=== PATIENT | female | born 1960 | race Caucasian/White ===

== ENCOUNTER 2017-11-19 18:56 | Emergency (ER) | payer OTHER ==
[~2017-11-19] VITALS: Wt 63.0 kg
== END 2017-11-19 20:25 | disposition home or self-care (01) ==
LOC: ED 18:56
DX: I73.00 Raynaud's syndrome without gangrene (principal); Z88.0 Allergy status to penicillin

== ENCOUNTER → 2017-11-28 | Outpatient (CLI) | payer OTHER ==
[2017-11-28 09:16] LABS: BASO % 0.3 % (0.0-1.0); EOS % 0.7 % (1.0-4.0); HEMATOCRIT 40.8 % (37.0-47.0); HEMOGLOBIN 13.1 g/dl (12.0-16.0); LYMPH # 2.1 10*3/uL (1.3-4.4); LYMPH % 34.7 % (27.0-41.0); MEAN CELL VOLUME 92.1 fl (81.0-99.0); MEAN CORPUSCULAR HGB 29.6 pg (27.0-31.0); MEAN CORPUSCULAR HGB CONC 32.1 g/dl (33.0-37.0); MEAN PLATELET VOLUME 10.2 fl (9.6-12.3); MONO # 0.6 10*3/uL (0.1-1.0); MONO % 9.5 % (3.0-9.0); NEUT # 3.3 10*3/uL (2.3-7.9); NEUT % 54.6 % (47.0-73.0); PLATELET COUNT AUTOMATED 289 10*3/uL (130-400); RED BLOOD COUNT 4.43 10*6/uL (4.10-5.10); RED CELL DISTRI WIDTH 12.6 % (0-14.5)
[2017-11-28 09:24] LABS: ALBUMIN 4.1 gm/dl (3.1-4.5); ALKALINE PHOSPHATASE 101 U/L (45-117); BUN 13 mg/dl (7-24); CHLORIDE 102 mmol/L (98-107); POTASSIUM 3.5 mmol/L (3.5-5.1); SGOT/AST 14 IU/L (3-35); SGPT/ALT 23 U/L (12-78); SODIUM 138 mmol/L (136-145); TOTAL PROTEIN 7.6 gm/dL (6.4-8.2)
[2017-11-29 08:08] LABS: RHEUMATOID ARTHRITIS FACTOR <10.0 IU/mL (0.0-13.9)
[2017-12-01 14:04] LABS: ANTI-DSDNA ANTIBODIES 096339 <1 IU/mL (0-9)
== END | disposition home or self-care (01) ==
LOC: LAB 08:31
PROVIDERS: Internal Medicine
DX: R21 Rash and other nonspecific skin eruption (principal)

== ENCOUNTER 2019-03-04 10:20 | Observation (INO) | payer OTHER ==
[~2019-03-04] VITALS: Ht 175.2 cm; Wt 65.8 kg
[2019-03-04 10:30] VITALS: BP 161/78
[2019-03-04 10:45] VITALS: BP 133/67
[2019-03-04 11:11] LABS: BASO % 0.4 % (0.0-1.0); EOS # 0.1 10*3/uL (0.0-0.4); EOS % 2.7 % (1.0-4.0); HEMATOCRIT 38.7 % (37.0-47.0); HEMOGLOBIN 12.6 g/dl (12.0-16.0); LYMPH # 1.1 10*3/uL (1.3-4.4); LYMPH % 25.3 % (27.0-41.0); MEAN CELL VOLUME 91.7 fl (81.0-99.0); MEAN CORPUSCULAR HGB 29.9 pg (27.0-31.0); MEAN CORPUSCULAR HGB CONC 32.6 g/dl (33.0-37.0); MEAN PLATELET VOLUME 9.6 fl (9.6-12.3); MONO # 0.4 10*3/uL (0.1-1.0); MONO % 8.5 % (3.0-9.0); NEUT # 2.8 10*3/uL (2.3-7.9); NEUT % 62.9 % (47.0-73.0); PLATELET COUNT AUTOMATED 237 10*3/uL (130-400); RED BLOOD COUNT 4.22 10*6/uL (4.10-5.10); RED CELL DISTRI WIDTH 12.2 % (0-14.5); WHITE BLOOD COUNT 4.5 10*3/uL (4.8-10.8)
[2019-03-04 11:22] LABS: ACT PARTIAL THROMBO TIME 28.2 SECONDS (20.0-32.1)
[2019-03-04 11:29] LABS: ALBUMIN 3.9 gm/dl (3.1-4.5); ALKALINE PHOSPHATASE 97 U/L (45-117); BUN 10 mg/dl (7-24); CHLORIDE 106 mmol/L (98-107); CREATININE 0.58 mg/dL (0.55-1.02); POTASSIUM 3.8 mmol/L (3.5-5.1); SGOT/AST 21 IU/L (3-35); SGPT/ALT 27 U/L (12-78); SODIUM 138 mmol/L (136-145); TOTAL PROTEIN 6.7 gm/dL (6.4-8.2)
[2019-03-04 11:30] LABS: TROPONIN I < 0.015 ng/ml (<0.045)
[2019-03-04 13:04] VITALS: BP 136/71
[2019-03-04 15:32] VITALS: BP 127/74
--- NOTE | 2019-03-04 15:32 | NUR ---
PT RESTING IN ROOM, SITTING IN CHAIR EATTING LUNCH, DENIES ANY PAIN OR SOB.
--- NOTE | 2019-03-04 16:45 | NUR ---
Time: 1644 A 58 year old FEMALE admitted to 4E under services of ADRIANE CAM DO. Pt. arrived via stretcher from ER. Chief complaint: .CHEST PAIN JESUSITA JARVIS
[2019-03-04 20:00] VITALS: BP 122/65
--- NOTE | 2019-03-04 20:30 | NUR ---
RESTING IN BED. RESPIRATIONS EASY. VSS. LUNGS DIMINISHED, CLEAR. PULSE OX 99% RA. DENIES CHEST PAIN OR OTHER VOICED COMPLAINTS. CALL LIGHT WITHIN REACH. NO VOICED COMPLAINTS
--- NOTE | 2019-03-04 21:00 | NUR ---
AMBULATING HALLWAY. NO DISTRESS NOTED. RESPIRATIONS EASY. NO VOICED COMPLAINTS
--- NOTE | 2019-03-04 21:21 | NUR ---
24 HR chart check completed.
[2019-03-05] VITALS: BP 135/76
--- NOTE | 2019-03-05 | NUR ---
REMAINS AWAKE BUT DROWSY. RESPIRATIONS EASY. VSS. CALL LIGHT WITHIN REACH
--- NOTE | 2019-03-05 06:00 | NUR ---
SLEPT THROUGHOUT NIGHT WITH NO DISTRESS NOTED. RESPIRATIONS EASY. NO C/O CHEST PAIN. CALL LIGHT WITHIN REACH.
--- NOTE | 2019-03-05 09:00 | NUR ---
Glass Finisher in to talk to patient. Patient states lives at home with alone. There are few steps in the home. Physician: beck rose Pharmacy: [facility]: none Patient's level of ADLs: INDEPENDENT Patient has working utilities: all working DME: none Follow-up physician's appointment after d/c: will be made by hospitalist nurse director upon discharge Does patient want to access PORTAL?: no Discharge plan discussed with patient, she lives at home, is independent in adls and ambulation, drives, works, she will return home when medically stable and denies any home needs, case management will follow. ESTELLE MONCADA
[2019-03-05] MEDS ORDERED: OMEPRAZOLE40 MG PO (10:42)
--- NOTE | 2019-03-05 11:00 | NUR ---
Discharge instructions reviewed with patient. Patient receptive and verbalizes understanding. Follow-up care instructed. Written instructions given to patient. Pt is going to eat lunch prior to leaving.
--- NOTE | 2019-03-05 12:00 | NUR ---
Pt left via ambulatory. States her private car is parked by hospital.
== END 2019-03-05 12:00 | disposition home or self-care (01) ==
LOC: ED 10:20 → EDHOLD 12:30 → 4E 12:30
PROVIDERS: Emergency Medicine; ADMIT Internal Medicine
DX: R07.89 Other chest pain (principal); E83.41 Hypermagnesemia; G24.3 Spasmodic torticollis; I73.00 Raynaud's syndrome without gangrene; Z86.79 Personal history of other diseases of the circulatory system